=== PATIENT | male | born 1975 | race Caucasian/White ===

== ENCOUNTER 2022-08-13 02:33 | Emergency (ER) | payer MEDICAID, SELFPAY ==
[2022-08-13 02:36] VITALS: BP 135/74; PULSE 90; O2SAT 99
--- NOTE | 2022-08-13 02:43 | ECG_ITS ---
Test Reason : overdose Blood Pressure : / mmHG Vent. Rate : 087 BPM Atrial Rate : 087 BPM P-R Int : 144 ms QRS Dur : 114 ms QT Int : 384 ms P-R-T Axes : 074 081 054 degrees QTc Int : 462 ms Normal sinus rhythm with sinus arrhythmia Incomplete right bundle branch block Borderline ECG No previous ECGs available Referred By: Fredrick Alvarado Electronically Signed By:Franklin Lenz
[2022-08-13 02:48] VITALS: BP 112/78; BP 127/78; PULSE 78; PULSE 88; RESP 18; TEMP 37; O2SAT 100; O2SAT 97; BMI 25.1
[2022-08-13] MEDS: Naloxone HCl Nasal TAKE HOME 4 MG SPRAY NOSTRILALT (03:45)
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
== END 2022-08-13 05:12 | disposition home or self-care (01) ==
PROVIDERS: Emergency Provider Emergency Medicine
DX: R40.4 Transient alteration of awareness (principal); T40.1X1A Poisoning by heroin, accidental (unintentional), initial encounter; Y92.810 Car as the place of occurrence of the external cause
CPT/HCPCS: 93005; 99282; 99283

== ENCOUNTER 2022-09-02 03:55 | Emergency (ER) | payer MEDICAID, SELFPAY ==
[2022-09-02 04:44] VITALS: BP 105/57; PULSE 77; RESP 16; TEMP 37.1; O2SAT 95; BMI 24.1
--- NOTE | 2022-09-02 05:09 | ED_ITS ---
HPI - Skin/Abscess/Foreign Bdy General Chief complaint: Skin/Abscess/Foreign Body Stated complaint: Cyst Time Seen by Provider: 09/02/22 04:52 History of Present Illness HPI narrative: Patient is a 46-year-old male presents today with having a mass protruding from his rectum been ongoing for approximately 3 days. There is no fever no chills no chest pain or shortness of breath no nausea no vomiting no difficulty urinating no difficulty having a bowel movement. Patient home. Related Data Previous Rx's Medication Instructions Recorded docusate sodium 100 mg capsule 100 mg PO BID Constipation #30 caps 09/02/22 (Colace) hydrocortisone 1 % topical cream 1 appl topical TID PRN pain #28.4 09/02/22 (Preparation H Hydrocortisone) grams Allergies Allergy/AdvReac Type Severity Reaction Status Date / Time No Known Allergies Allergy Unverified 11/26/19 16:10 Review of Systems Review of Systems: For chest pain or diaphoresis Yes all other systems are reviewed and are negative Physical Exam Vital Signs: Vital Signs: Last Vital Signs Temp 98.8 F 09/02/22 04:44 Pulse 77 09/02/22 04:44 Resp 16 09/02/22 04:44 BP 105/57 L 09/02/22 04:44 Pulse Ox 95 09/02/22 04:44 O2 Del Method Room Air 09/02/22 04:44 BMI result Body Mass Index 24.1 Appearance: Alert. Oriented X3. No acute distress. Eyes: Pupils equal, round and reactive to light. ENT: Pharynx normal. Neck: Normal inspection. Neck supple. No lymph nodes noted. No crepitus CVS: Normal heart rate and rhythm. Pulses normal. Normal S1 and S2 Respiratory: No respiratory distress. Breath sounds normal. No Wheezing. No rales Abdomen: Soft and nontender. No rigidity. No distention. good BS x4 Skin: Skin warm and dry. Normal skin color. Normal skin turgor. Rectal exam done with joaquín [place] present. There is an external thrombosed hemorrhoid that is on the right side of the anus. Positive pain to touch Extremities: No lower extremity edema. Neurovascular intact to all extremities. No Lacerations. No Rash Neuro: Oriented X 3. No motor deficit. No sensory deficit. Moving all extermities. No slurred speech Medical Decision Making Medical Decision Making MDM Narrative: Positive hemorrhoid on external exam. Will have patient follow-up with surgery. Colace, preparation H Differential Diagnosis Differential Diagnoses: The differential diagnosis associated with the presentation includes Abscess, hemorrhoid Lab Data [facility] Lab Attestation statement: I reviewed the patient's lab results. Discharge Plan Discharge Clinical Impression: Acute hemorrhoid Patient Disposition: Home, Self-Care Instructions: Hemorrhoids (DC), Sitz Bath (DC) Prescriptions: New hydrocortisone [Preparation H Hydrocortisone] 1 % cream 1 appl topical TID PRN (Reason: pain) Qty: 28.4 0RF docusate sodium [Colace] 100 mg capsule 100 mg PO BID Qty: 30 0RF Referrals: Florencio Rangel MD [Physician] - 09/03/22
== END 2022-09-02 05:31 | disposition home or self-care (01) ==
PROVIDERS: Emergency Provider Emergency Medicine Emergency Medical Services
DX: K64.4 Residual hemorrhoidal skin tags (principal); Z79.899 Other long term (current) drug therapy
CPT/HCPCS: 99283

== ENCOUNTER 2022-11-05 17:30 | Emergency (ER) | payer OTHER, MEDICAID, SELFPAY ==
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
[2022-11-05 17:48] VITALS: BP 110/68; PULSE 89; RESP 16; TEMP 36.8; O2SAT 96; BMI 25.5
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
[2022-11-05 18:26] VITALS: BP 122/68; PULSE 83; RESP 20; TEMP 36.8; O2SAT 97
--- OUTSIDE RECORDS SUMMARY | 2022-11-05 18:31 | XMS_ITS | Continuity of Care Document ---
Author Name Unknown Organization [facility] Address [address] [place] [id number]- Care Team Providers Care Director Of Blood Name Role Phone Francisco KIRKPATRICK, Zion Stewart Primary Care Physician [phone] Encounter [facility] [place] Date(s): 06/29/21 - 07/29/21 [facility] [address] [place] [id number]- Attending Physician: Darrius Chiang Admitting Physician: Darrius Chiang Referring Physician: Darrius Chiang Allergies, Adverse Reactions, Alerts No Known Medication Allergies Medications naproxen sodium 550 mg oral tablet 1 tablet = 550 mg, By Mouth, 2 times a day, 0 Refills, Maintenance, 07/17/13 11:22:46 Start Date: 07/17/13 Status: Ordered Roxicodone 30 mg oral tablet 1 tablet = 30 mg, By Mouth, Every 6 hours, 0 Refills, Maintenance, 07/17/13 11:22:33 Start Date: 07/17/13 Status: Ordered Suboxone 8 mg-2 mg sublingual film 2 film, Sublingual, Daily, 0 Refills, Maintenance, 06/19/21 2:01:00 EDT, Partial fill upon patient request if the prescription is for a schedule II opioid drug. Start Date: 06/19/21 Status: Ordered Xanax 1 mg oral tablet 1 tablet = 1 mg, By Mouth, 3 times a day, 0 Refills, Maintenance, 07/17/13 11:22:58 Start Date: 07/17/13 Status: Ordered
--- OUTSIDE RECORDS SUMMARY | 2022-11-05 18:31 | XMS_ITS | Continuity of Care Document ---
Author Name Unknown Organization [facility] Address [address] [place] [id number]- Care Team Providers Care Machine Room Engineer Name Role Phone Not on Staff, PCP Primary Care Physician Unavail able [place]counter [facility] [place](s[place] 06/19/21 - 06/19/[address] [id number]- Encounter Diagnosis Chest pain(Final) - 06/19/21 Abnormal EKG(Final) - 06/19/21 Discharge Disposition: A-D/C Home Attending Physician: Kassidy Flood MD Admitting Physician: Kassidy Flood MD Referring Physician: Not on Staff, Referring MD Allergies, Adverse Reactions, Alerts No Known Medication [...] 07/17/13 11:22:58 Start Date: 07/17/13 Status: Ordered Results Radiology Reports * Exam Date Time Procedure Performing Provider Status 06/19/21 3:54 AM Chest 2 Views Frontal and Lat Jaren Chakraborty; Ben (Verified) Notes: (Chest 2 Views Frontal and Lat) Reason For Exam: chest pain, cough;Other: RESULT: Chest 2 Views Frontal and Lat Chest 2 Views Frontal and Lat Hx of Present Illness: states chest cold x 2 weeks, mild cough, sob, tired, works 18 hours day, no fevers,; Reason: Other:; chest pain, cough; Clinical Question(s): Pneumonia COMPARISON: September 2013 T-spine films FINDINGS: Lungs clear, no infiltrates. CP angles sharp. Cardiac silhouette, vascularity, hilar and mediastinal regions unremarkable. Bony thorax and surrounding soft tissues unremarkable. IMPRESSION: Negative chest. WSN: [id number] Ordering Physician: Trina Moya Dictated By: Dao Young MD Dictated Date/Time: 06/19/21 7:50 am Reviewed By: Dao Young MD Signed By: Dao Young MD Signed Date/Time: 06/19/21 7:50 am Transcribed By: NATASHA Transcribed Date/Time: 06/19/21 7:49 am Vital Signs Most recent to oldest [Reference Range]: 1 2 3 Height 172.7 cm (06/19/21 2:00 AM) Weight 81.6 kg (06/19/21 8:01 AM) 81.6 kg (06/19/21 2:00 AM) Oxygen Saturation [94-100 %] 97 % (06/19/21 11:12 AM) 97 % (06/19/21 8:01 AM) 98 % (06/19/21 2:00 AM) Pulse Rate [55-90 bpm] 58 bpm (06/19/21 11:12 AM) 52 bpm *L* (06/19/21 8:01 AM) 74 bpm (06/19/21 2:00 AM) Body Mass Index [18.5-24.99] 27.36 *H* (06/19/21 2:00 AM) Blood Pressure [90-138/55-84 mm Hg] 109/70mm Hg (06/19/21 11:12 AM) 113/76mm Hg (06/19/21 8:01 AM) 125/74mm Hg (06/19/21 2:00 AM) Respiratory Rate [16-30 br/min] 15 br/min *L* (06/19/21 11:12 AM) 15 br/min *L* (06/19/21 8:01 AM) 18 br/min (06/19/21 2:00 AM) Temperature [96.8-100.4 DegF] 98.1 DegF (06/19/21 11:12 AM) 98.2 DegF (06/19/21 8:01 AM) 98.3 DegF (06/19/21 2:00 AM) Mode of Delivery (Oxygen) Room air (06/19/21 11:12 AM) Room air (06/19/21 8:01 AM) Room air (06/19/21 2:00 AM) Temperature Route Oral (06/19/21 11:12 AM) Oral (06/19/21 8:01 AM) Oral (06/19/21 2:00 AM)
[2022-11-05 19:15] VITALS: BP 99/69; PULSE 73; RESP 18; TEMP 36.9; O2SAT 98
[2022-11-05] MEDS: Ibuprofen 600 MG TABLET PO (20:23)
== END 2022-11-05 20:25 | disposition home or self-care (01) ==
PROVIDERS: Emergency Provider Emergency Medicine
DX: S13.4XXA Sprain of ligaments of cervical spine, initial encounter (principal); M54.2 Cervicalgia; M54.50 Low back pain, unspecified; V49.49XA Driver injured in collision with other motor vehicles in traffic accident, initial encounter; Y93.9 Activity, unspecified; Y92.410 Unspecified street and highway as the place of occurrence of the external cause; Y99.9 Unspecified external cause status
CPT/HCPCS: 70450; 72125; 99283; 99284

== ENCOUNTER 2023-10-13 01:05 | Emergency (ER) | payer MEDICAID, SELFPAY ==
[2023-10-13 01:26] VITALS: BP 117/77; PULSE 86; RESP 16; TEMP 36.8; O2SAT 96; BMI 28.1
[2023-10-13] MEDS: Acetaminophen 325 MG TABLET 650 MG PO (02:21)
[2023-10-13 03:12] VITALS: BP 135/82; PULSE 81; RESP 16; TEMP 36.9; O2SAT 98
[2023-10-13 04:00] VITALS: BP 124/79; PULSE 79; RESP 14; TEMP 36.6; O2SAT 98
--- NOTE | 2023-10-13 05:29 | ED.GENADULT ---
HPI - General Adult General Chief complaint: Ear Problems Stated complaint: LEFT EAR PAIN Time Seen by Provider: 10/13/23 05:29 History of Present Illness ED Provider: Ciaran GALLEGOS narrative: The patient is a 47-year-old male says that he has generally in fairly good health. His only medication is Suboxone. He has no history of diabetes. He says that he had an ear infection several weeks ago and was prescribed amoxicillin. He thought he got better and did not finish the entire prescription. Over the last few days he has had a recurrence of left ear pain. He took the last few pills of amoxicillin over the past couple of days but is continuing to have left ear pain and thinks that he needs additional antibiotics. Related Data Previous Rx's ?Medication ?Instructions ?Recorded docusate sodium 100 mg capsule 100 mg PO BID Constipation #30 caps 09/02/22 (Colace) hydrocortisone 1 % topical cream 1 appl topical TID PRN pain #28.4 09/02/22 (Preparation H Hydrocortisone) grams ibuprofen 600 mg tablet 600 mg PO Q8H PRN pain #14 tabs 11/05/22 amoxicillin 500 mg tablet 500 mg PO TID 8 days #24 tabs 10/13/23 ibuprofen 600 mg tablet 600 mg PO Q6H PRN pain #14 tabs 10/13/23 Allergies Allergy/AdvReac Type Severity Reaction Status Date / Time No Known Allergies Allergy Verified 10/13/23 01:27 Review of Systems Review of Systems: Yes all other systems are reviewed and are negative PMFSH Social History Social History Alcohol intake: never Advance Directives: No Advance Directives Information Provided: No Do you have a plan to hurt others: No Plan Physical Exam ED Vital Signs: Vital Signs - 24 hr 10/13/23 01:26 10/13/23 03:12 10/13/23 04:00 Temperature 98.3 F 98.5 F 97.9 F Pulse Rate 86 81 79 Respiratory Rate 16 16 14 Blood Pressure 117/77 135/82 124/79 Pulse Oximetry 96 98 98 Oxygen Delivery Method Room Air Room Air Room Air 10/13/23 05:52 10/13/23 05:57 Temperature 98.5 F 98.5 F Pulse Rate 78 78 Respiratory Rate 16 16 Blood Pressure 118/80 118/80 Pulse Oximetry 97 97 Oxygen Delivery Method Room Air Room Air BMI result Body Mass Index 28.1 Const Other: The patient is awake, alert, pleasant, cooperative. He had a nontoxic appearance and demeanor. HENMT Other: Face is symmetrical. External ears are unremarkable. Ear canals are normal bilaterally. Tympanic membranes are normal bilaterally. The pharynx is normal. Possibly some slight left-sided TMJ tenderness. No trismus. Eyes Other: Pupils are round equal, conjunctivae are clear, extraocular movements are intact. Neck Other: Some slight tenderness under the angle of the left jaw possibly indicative of a tender lymph node. Resp Effort & Inspection: normal respiratory effort Auscultation: clear to auscultation bilaterally Cardio Rate: regular rate Rhythm: regular rhythm Heart sounds: S1 normal heart sound present and S2 normal heart sound present Skin Other: Skin is dry and unremarkable. No rash or swelling. Neuro Other: The patient is awake and alert. He has a cheerful, positive demeanor. Cranial nerves are grossly intact. He moves his extremities normally. He has a normal gait. He seems neurologically intact. Extrem Other: No peripheral edema Medications Administered Discontinued Medications Generic Name Dose Route Start Last Admin Trade Name Freq PRN Reason Stop Dose Admin Acetaminophen 650 mg 10/13/23 02:19 10/13/23 02:21 Acetaminophen 325 Mg Tablet PO 10/13/23 02:20 650 mg ONCE ONE Administration Acetaminophen 975 mg 10/13/23 05:35 10/13/23 05:54 Acetaminophen 325 Mg Tablet PO 10/13/23 05:36 975 mg ONCE ONE Administration Amoxicillin 500 mg 10/13/23 05:35 10/13/23 05:55 Amoxicillin 500 Mg Capsule PO 10/13/23 05:36 500 mg ONCE ONE Administration Medical Decision Making Medical Decision Making [facility] Narrative: The patient is a 47-year-old male who presents with a complaint of left ear pain and who was requesting antibiotics for what he thinks is a left ear infection. He says he has had left ear infections in the past and that his symptoms on this occasion are similar. When I told him that I did not find any obvious signs of an otitis media he told me that that might be because he had already taken a few left over doses of amoxicillin and that he might have a partially treated otitis media. He would like to continue some additional amoxicillin. I spoke to him about possible alternative diagnoses such as TMJ syndrome but he was mostly focused on getting antibiotics. He was given a prescription for amoxicillin. He was advised to follow up with his regular doctor. Discharge Plan Discharge Clinical Impression: Acute pain of left ear Patient Disposition: Home, Self-Care Additional Instructions: On my examination of your ear it is not entirely clear that you have an ear infection. I do not see anything in your ear canal. I do not see any swelling of your ear canal. Your eardrum looks fairly good. Overall it is not clear this is an ear infection. Nevertheless I have sent a prescription for amoxicillin to your pharmacy which you may use. It is possible this your pain could be from a different cause such as irritation of the joint of your jaw on the left side (the temporomandibular joint or TMJ). You may use ibuprofen and acetaminophen as needed for discomfort. Please follow up soon with your regular doctor's office for a secondnd opinion. Return to the emergency room if significantly worse. Prescriptions: New amoxicillin 500 mg tablet 500 mg PO TID 8 Days Qty: 24 0RF ibuprofen 600 mg tablet 600 mg PO Q6H PRN (Reason: pain) Qty: 14 0RF No Action ibuprofen 600 mg tablet 600 mg PO Q8H PRN (Reason: pain) Qty: 14 0RF hydrocortisone [Preparation H Hydrocortisone] 1 % cream 1 appl topical TID PRN (Reason: pain) Qty: 28.4 0RF docusate sodium [Colace] 100 mg capsule 100 mg PO BID Qty: 30 0RF Referrals: [facility] [Provider Group] (left ear pain) Interventions: ED Discharge Assessment Last Done: 10/13/23 05:57 Discharge Date/Time: 10/13/23 05:57 Print Language: [place]ese
[2023-10-13 05:52] VITALS: BP 118/80; PULSE 78; RESP 16; TEMP 36.9; O2SAT 97
[2023-10-13] MEDS: Acetaminophen 325 MG TABLET 975 MG PO (05:54)
[2023-10-13] MEDS: Amoxicillin 500 MG CAPSULE PO (05:55)
[2023-10-13 05:57] VITALS: BP 118/80; PULSE 78; RESP 16; TEMP 36.9; O2SAT 97
== END 2023-10-13 05:57 | disposition home or self-care (01) ==
PROVIDERS: Emergency Provider Emergency Medicine
DX: H92.02 Otalgia, left ear (principal); Z79.899 Other long term (current) drug therapy
CPT/HCPCS: 99283

== ENCOUNTER 2024-12-17 19:26 | Emergency (ER) | payer MEDICAID, SELFPAY ==
[2024-12-17 19:37] VITALS: BP 106/54; PULSE 62; RESP 18; TEMP 36.5; O2SAT 98; BMI 23.8
--- NOTE | 2024-12-17 19:39 | ED_ITS ---
HPI - General Adult General Chief complaint: Animal Bite Stated complaint: dog bite Time Seen by Provider: 12/17/24 21:36 Source: patient Mode of arrival: ambulatory Limitations: no limitations History of Present Illness ED Provider: LEO HPI narrative: 49 yo male with no sig PMH R hand dominant unclear about tdap status here with c/o R forearm dog bite yesterday by neighbors dog. He denies signs of infection. He is not sure about the dog rabies status and has no way of knowing. No prior known rabies vaccine in past MD complaint: dog bite Onset (ago): day(s) (1) Location: right and upper extremity Radiation: non-radiation Severity: mild Quality: aching Pain Consistency: intermittent Relieving factors: none Exacerbating factors: other Associated symptoms: denies other symptoms Treatments prior to arrival: none Related Data Previous Rx's ?Medication ?Instructions ?Recorded docusate sodium 100 mg capsule 100 mg PO BID Constipat ion #30 caps 09/02/22 (Colace) hydrocortisone 1 % topical cream [address] N pain #28.4 09/02/22 (Preparation H Hydrocortisone) grams ibuprofen 600 mg tablet 600 mg PO Q8H PRN pain #14 t abs 11/05/22 amoxicillin 500 mg tablet 500 mg PO TID 8 days #24 tab s 10/13/23 ibuprofen 600 mg tablet 600 mg PO Q6H PRN pain #14 t abs 10/13/23 amoxicillin 875 mg-potassium 1 tab PO BID #9 tabs 12/03 clavulanate 125 mg tablet Allergies Allergy/AdvReac Type Severity Reaction Status Date / Time No Known Allergies Allergy Verified 12/17/24 19:40 Review of Systems 2 Review of Systems: Constitutional : No Fever, No Chills, Cardiovascular : No Chest Pain, No SOB Respiratory : No Dyspnea Gastrointestinal : No abdominal pain Musculoskeletal : No Joint Swelling Skin : No rash, positive skin laceration Neuro : No Weakness, No Numbness Yes all other systems are reviewed and are negative PENDING SALE TO [facility] Past Medical History Attestation statement: The following information was validated with the patient. Source: old records reviewed Medical History Dog bite Social History Social History (Updated 12/17/24 @ 21:46 by Bia Yuan DO) Alcohol intake: never Patient Tobacco Use Status: Tobacco use Unknown Advance Directives: No Advance Directives Information Provided: No Do you have a plan to hurt others: No Plan Physical Exam ED Vital Signs: Vital Signs - 24 hr 12/17/24 19:37 12/17/24 21:41 Temperature 97.7 F 98.6 F Pulse Rate 62 58 Respiratory Rate 18 18 Blood Pressure 106/54 L 109/61 Pulse Oximetry 98 100 Oxygen Delivery Method Room Air Room Air BMI result Body Mass Index 23.8 Appearance: Alert. Oriented X3. No acute distress. Eyes: Pupils equal, round and reactive to light. ENT: Pharynx normal. Neck: Normal inspection. . CVS: Pulses normal. Respiratory: No respiratory distress. Abdomen: Soft and nontender. Skin: Skin warm and dry. Normal skin color. Extremities: No lower extremity edema. R forearm very superficial closed R forearm abrasions - no signs of infection, distal NV intact Neuro: Oriented X 3. No motor deficit. No sensory deficit. Course Course Course Narrative: This is a rapid medical exam performed by Zachery Handy NP: Additional HPI, ROS, PE not included below will be deferred to primary provider. Patient is a 49y/o M presenting with complaint of dog bite to right forearm. was bit by his neighbor's dog in [place] last night. The dog got out of the fence and he was trying to get it back in. neighbor was not home at the time, is unsure if dog is vaccinated. Unsure last Tdap. Plan: Tdap, wants rabies series Medical Decision Making Medical Decision Making MDM Narrative: 49 yo male with R forearm dog bite no signs of infection at this time will need tdap, augmentin, rabies and supportive care. He is NV intact, no signs of fracture Differential Diagnosis Differential Diagnoses: The differential diagnosis associated with the presentation includes dog bite Admission/Observation Consideration of admission/observation: Escalation of care including admission/observation considered not toxic, no infection External Record Review External record reviewed: Outpatient record Prescription Management I considered prescription management with: Antibiotic Discharge Plan Discharge Clinical Impression: Dog bite Patient Disposition: Home, Self-Care Instructions: Animal Bite (ED), Rabies (ED) Additional Instructions: apply bacitracin twice a day for 5 days monitor for redness, yellow drainage, increased swelling it is okay to shower On amoxicillin-clavulanate, softer bowel movements are to be expected. Call your provider if you move your bowels more than 4 times a day, your bowel movements are almost all liquid, or you get a rash.? infusion center will call you for further rabies shots Prescriptions: New amoxicillin-pot clavulanate 875-125 mg tablet 1 tab PO BID Qty: 9 0RF No Action ibuprofen 600 mg tablet 600 mg PO Q8H PRN (Reason: pain) Qty: 14 0RF hydrocortisone [Preparation H Hydrocortisone] 1 % cream 1 appl topical TID PRN (Reason: pain) Qty: 28.4 0RF docusate sodium [Colace] 100 mg capsule 100 mg PO BID Qty: 30 0RF amoxicillin 500 mg tablet 500 mg PO TID 8 Days Qty: 24 0RF ibuprofen 600 mg tablet 600 mg PO Q6H PRN (Reason: pain) Qty: 14 0RF Print Language: Korean
[2024-12-17 21:41] VITALS: BP 109/61; PULSE 58; RESP 18; TEMP 37; O2SAT 100
[2024-12-17] MEDS: Rabies Vaccine (PCEC)/PF 1 ML VIAL IM (22:03)
[2024-12-17] MEDS: Diphth,Pertus(ACell),Tet Adult 0.5 ML SYRINGE IM (22:12)
--- NOTE | 2024-12-17 22:36 | PC.NURSE ---
education on Rabies vaccination, gave paper work to executive legal secretary Amna to set up appointment.
[2024-12-17 22:38] VITALS: BP 109/61; PULSE 58; RESP 18; TEMP 37; O2SAT 100
== END 2024-12-17 22:39 | disposition home or self-care (01) ==
PROVIDERS: Emergency Provider Emergency Medicine
DX: S51.851A Open bite of right forearm, initial encounter (principal); M79.631 Pain in right forearm; W54.0XXA Bitten by dog, initial encounter; Y93.9 Activity, unspecified; Y92.9 Unspecified place or not applicable; Y99.8 Other external cause status; Z23 Encounter for immunization; Z20.3 Contact with and (suspected) exposure to rabies; Z29.14 Encounter for prophylactic rabies immune globulin
CPT/HCPCS: 90375; 90471; 90472; 90675; 90715; 96372; 99284

== ENCOUNTER 2025-02-16 18:15 | Emergency (ER) | payer MEDICAID, SELFPAY ==
--- NOTE | ~2025-02-16 | XR_ITS ---
CLINICAL HISTORY: fall Right tibia fibula two views Comparison: None provided Findings: No acute fracture or dislocation. No focal bony abnormality. No radiopaque foreign body. Impression: No acute bony abnormality This document has been electronically signed by: Jose Villegas MD on 02/16/2025 20:05:40
--- NOTE | ~2025-02-16 | XR_ITS ---
CLINICAL HISTORY: Coughing. Pnuemonia? 2 view chest x-ray Comparison: None provided Findings: Lungs are clear without acute infiltrates. No pneumothorax. Heart size normal. No acute bony abnormalities. Impression: No acute processes This document has been electronically signed by: Jose Villegas MD on 02/16/2025 20:01:21
--- NOTE | ~2025-02-16 | XR_ITS ---
CLINICAL HISTORY: fall. fracutre Right foot three views Comparison: None provided Findings: Second phalanges never well visualized. Second digit is flexed on all images. Otherwise no acute fracture is identified. No focal bony abnormality. No radiopaque foreign body. Impression: No acute bony abnormality This document has been electronically signed by: Jose Villegas MD on 02/16/2025 20:01:45
[2025-02-16 19:07] VITALS: BP 119/73; PULSE 64; RESP 20; TEMP 36.8; O2SAT 94; BMI 24.3
--- NOTE | 2025-02-16 19:12 | ED.GENADULT ---
HPI - General Adult General Chief complaint: General Medical Stated complaint: Cough Congestion Running Nose Time Seen by Provider: 02/16/25 20:38 Source: patient Mode of arrival: ambulatory Limitations: no limitations History of Present Illness ED Provider: Philip OSORIO HPI narrative: Patient is a 49-year-old male presenting to the ED for 2 complaints, patient reports yesterday he developed viral URI symptoms including cough, chest congestion, and sinus congestion with tinnitus. The patient also reports 2 days ago he stepped on a piece of metal at work causing his right ankle to becomes stuck between 2 metal bars resulting in a fall, denies head strike or LOC. The patient reports he has been walking on the affected extremity since that time but with discomfort. The patient denies taking any anti-inflammatory medication for either complaint prior to his arrival in the ED today. Patient denies previous injury to the affected extremity. Related Data Previous Rx's ?Medication ?Instructions ?Recorded docusate sodium 100 mg capsule 100 mg PO BID Constipation #30 caps 09/02/22 (Colace) hydrocortisone 1 % topical cream 1 appl topical TID PRN pain #28.4 09/02/22 (Preparation H Hydrocortisone) grams ibuprofen 600 mg tablet 600 mg PO Q8H PRN pain #14 tabs 11/05/22 amoxicillin 500 mg tablet 500 mg PO TID 8 days #24 tabs 10/13/23 ibuprofen 600 mg tablet 600 mg PO Q6H PRN pain #14 tabs 10/13/23 amoxicillin 875 mg-potassium 1 tab PO BID #9 tabs 12/17/24 clavulanate 125 mg tablet acetaminophen 500 mg capsule 1,000 mg (2 x 500 mg) PO .q8 PRN 02/16/25 fever or pain #30 caps ibuprofen 600 mg tablet 600 mg PO Q8H PRN fever or pain 02/16/25 #30 tabs Allergies Allergy/AdvReac Type Severity Reaction Status Date / Time No Known Allergies Allergy Verified 02/16/25 19:12 Review of Systems Review of Systems: Yes all other systems are reviewed and are negative PMFSH Past Medical History Medical History Dog bite Social History Social History (Updated 12/17/24 @ 21:46 by Bia Yuan DO) Alcohol intake: never Patient Tobacco Use Status: Tobacco use Unknown Advance Directives: No Advance Directives Information Provided: No Do you have a plan to hurt others: No Plan Physical Exam ED Vital Signs: Vital Signs - 24 hr 02/16/25 19:07 02/16/25 20:31 02/16/25 20:53 Temperature 98.2 F 98.8 F 98.8 F Pulse Rate 64 60 60 Respiratory Rate 20 16 16 Blood Pressure 119/73 136/74 136/74 Pulse Oximetry 94 97 97 Oxygen Delivery Method Room Air Room Air Room Air BMI result Body Mass Index 24.3 CONSTITUTIONAL: The patient appears non-toxic, well nourished and in no acute distress. Vital signs as documented. HEAD: Atraumatic, normocephalic. EYES: EOMs grossly intact, pupils equal, conjunctiva clear, no exudate. ENT: Nares patent, no discharge. Airway patent, no audible stridor, visible mucosa is pink and moist without noted lesions. NECK: Trachea is midline, no obvious masses or gross abnormalities. CHEST: Symmetric movement, normal appearance. LUNGS: LS present and CTAB, no w/r/r. Non-labored work of breathing. CARDIAC: Regular Rhythm, S1/S2 appreciated, no murmurs, rubs or gallops. ABDOMEN: Abdomen soft and non-tender x4 quadrants, no palpable masses or organomegaly. : Deferred. EXTREMITIES: Normal tone, moves all extremities spontaneously without reported pain. No obvious acute injury or deformity noted. Patient ambulates with a steady gait, without evidence of limping. NEURO: Alert and oriented x3, CN II-XII appear grossly intact. Cerebellar Functioning grossly intact. No obvious sensory or motor deficits. Speech clear and appropriate. PSYCH: normal affect, appropriate eye contact, fluid speech, with appropriate response to questioning. No reported suicidality or homicidality. SKIN: Warm, dry, color appropriate, normal turgor. No rashes noted. Course Course Course Narrative: RME: 49 year male presents to ED for URI symptoms. Patient is also states ankle leg pain after gastroparesis to male was at work and fall to the ground. Patient denies any head images swabs ordered Medications Administered Discontinued Medications Generic Name Dose Route Start Last Admin Trade Name Freq PRN Reason Stop Dose Admin Acetaminophen 975 mg 02/16/25 20:45 02/16/25 20:49 Acetaminophen 325 Mg Tablet PO 02/16/25 20:46 975 mg ONCE ONE Administration Ibuprofen 600 mg 02/16/25 20:45 02/16/25 20:49 Ibuprofen 600 Mg Tablet PO 02/16/25 20:46 600 mg ONCE ONE Administration Medical Decision Making Medical Decision Making [facility] Narrative: 8:46 PM 02/16/2025 (Paula OSORIO): Patient is a 49-year-old male presenting to the ED for 2 complaints, patient reports yesterday he developed viral URI symptoms including cough, chest congestion, and sinus congestion with tinnitus. The patient also reports 2 days ago he stepped on a piece of metal at work causing his right ankle to becomes stuck between 2 metal bars resulting in a fall, denies head strike or LOC. The patient reports he has been walking on the affected extremity since that time but with discomfort. The patient denies taking any anti-inflammatory medication for either complaint prior to his arrival in the ED today. Patient denies previous injury to the affected extremity. On exam patient is well-appearing, no acute distress, distal right ankle shows no swelling, crepitus, or tenderness. The patient's viral swabs are negative for influenza, COVID, and RSV, strep swab negative, chest x-ray shows no pneumonia or focal consolidation. The patient's foot x-ray and tib-fib x-ray demonstrate no acute fracture. The patient is likely suffering from a ankle sprain and viral URI. Patient will be discharged to follow up with PCP. Admission/Observation Consideration of admission/observation: Escalation of care including admission/observation considered Lab Data [facility] Lab Attestation statement: I reviewed the patient's lab results. Labs: Lab Results 02/16/25 Range/Units 19:22 Influenza Type A (PCR) NEGATIVE (Negative) Influenza Type B (PCR) NEGATIVE (Negative) RSV RNA Qual (PCR) NEGATIVE (Negative) SARS-CoV-2 RNA (RT-PCR) NEGATIVE (Negative) S. pyogenes GrpA ANUJA Negative (Negative) Radiology Impression Discussion of test interpretation with radiology: I have reviewed the radiologist's reading. Discharge Plan Discharge Clinical Impression: Viral upper respiratory infection, Right ankle sprain Patient Disposition: Home, Self-Care Instructions: Ankle Sprain (ED), Upper Respiratory Infection (ED), Viral Syndrome (ED), P.R.I.C.E. Treatment (ED) Additional Instructions: Thank you for choosing [facility]'s Emergency Department for your care today. At this time there is no indication for admission to the hospital or continued ED observation, and it is safe to discharge you home. Thankfully your viral swab, strep swab, ankle and foot x-ray, and chest x-ray today were all unremarkable. You are negative for COVID, flu, RSV, pneumonia, and strep throat. Your upper respiratory symptoms and cough are likely due to a viral upper respiratory infection. There is no indication for antibiotics. Your ankle in foot x-ray show no evidence of acute fracture, your ankle pain from your missed step at work is likely secondary to a strain/sprain of your ankle. You should take alternating (staggered) doses of ibuprofen 600mg and Tylenol 1000mg every 4 hours as needed for any additional congestion, fever, cough, or pain. Please stay well hydrated and get plenty of rest. Please rest the injured area, and apply ice for 20 minutes every hour. Please follow up with your primary care physician for re-evaluation, additional management of your symptoms, and continued preventative care. If you do not have a primary care physician, please call the [facility] at [phone] to establish a new primary care physician. While waiting to establish your new primary care physician, you can call our [facility] at [phone] for non-emergency needs. Please return to the emergency department if you develop a severe or sudden change in your symptoms, a fever over 100.4 that does not improve with Tylenol or Ibuprofen, recurrent vomiting, or any other new or worsening symptoms or concerns. Prescriptions: New ibuprofen 600 mg tablet 600 mg PO Q8H PRN (Reason: fever or pain) Qty: 30 0RF acetaminophen 500 mg capsule 1,000 mg PO .q8 PRN (Reason: fever or pain) Qty: 30 0RF No Action ibuprofen 600 mg tablet 600 mg PO Q8H PRN (Reason: pain) Qty: 14 0RF amoxicillin-pot clavulanate 875-125 mg tablet 1 tab PO BID Qty: 9 0RF hydrocortisone [Preparation H Hydrocortisone] 1 % cream 1 appl topical TID PRN (Reason: pain) Qty: 28.4 0RF docusate sodium [Colace] 100 mg capsule 100 mg PO BID Qty: 30 0RF amoxicillin 500 mg tablet 500 mg PO TID 8 Days Qty: 24 0RF ibuprofen 600 mg tablet 600 mg PO Q6H PRN (Reason: pain) Qty: 14 0RF Stand Alone Forms: Work/School Release Interventions: ED Discharge Assessment Last Done: 02/16/25 20:53 Discharge Date/Time: 02/16/25 20:55 Print Language: Lithuanian
[2025-02-16 19:41] LABS: IDNOW Serial# 08D9AD1C; Strep A Nucleic Acid Negative (Negative)
[2025-02-16 20:07] LABS: Resp Syncy Virus RNA Qual PCR NEGATIVE (Negative); SARS COV2 PCR INHOUSE NEGATIVE (Negative)
[2025-02-16 20:31] VITALS: BP 136/74; PULSE 60; RESP 16; TEMP 37.1; O2SAT 97
[2025-02-16 20:53] VITALS: BP 136/74; PULSE 60; RESP 16; TEMP 37.1; O2SAT 97
== END 2025-02-16 20:55 | disposition home or self-care (01) ==
PROVIDERS: Physician Assistant; Emergency Provider Emergency Medicine
DX: J06.9 Acute upper respiratory infection, unspecified (principal); S93.401A Sprain of unspecified ligament of right ankle, initial encounter; W19.XXXA Unspecified fall, initial encounter; Y93.9 Activity, unspecified; Y92.9 Unspecified place or not applicable; Y99.9 Unspecified external cause status; R05.9 Cough, unspecified; R09.89 Other specified symptoms and signs involving the circulatory and respiratory systems; Z03.818 Encounter for observation for suspected exposure to other biological agents ruled out
CPT/HCPCS: 71046; 73590; 73630; 87637; 87651; 99283

== ENCOUNTER → 2025-02-16 19:12 | Outpatient (BNV) | payer MEDICAID, SELFPAY | PROVIDERS: Emergency Provider Emergency Medicine; Visit Provider Radiology Diagnostic Radiology | DX: R05.9 Cough, unspecified (principal); S92.901A Unspecified fracture of right foot, initial encounter for closed fracture; Z04.3 Encounter for examination and observation following other accident | CPT/HCPCS: 71046; 73590; 73630 ==